=== PATIENT | male | born 1975 ===

== ENCOUNTER 2017-02-07 12:03 | Emergency (ER) | payer MEDICAID ==
[2017-02-07 12:17] VITALS: PULSE 96
[2017-02-07 12:19] VITALS: BMI 29.5
[2017-02-07] MEDS ORDERED: Aspirin 325 mg EC Tablets PO ONE (13:13)
--- NOTE | 2017-02-07 13:15 | RAD ---
HISTORY: chest pain COMPARISON: Chest x-ray performed 10/31/15 TECHNIQUE: Chest, one view. FINDINGS: LUNGS: No focal consolidation. Please note that chest x-ray has limited sensitivity for the detection of pulmonary masses. PLEURA: No significant pleural effusion identified. No definite pneumothorax . CARDIOVASCULAR: Heart size appears within normal limits. OSSEOUS STRUCTURES: Degenerative changes of the spine. VISUALIZED UPPER ABDOMEN: Unremarkable. OTHER FINDINGS: None. IMPRESSION: No focal consolidation, significant pleural effusion, or definite pneumothorax identified.
[2017-02-07 13:31] LABS: BASO % 0.4 % (0.0-2.0); EOS # 0.1 K/uL (0.0-0.7); EOS % 1.2 % (0.0-4.0); HEMATOCRIT 44.2 % (35.0-51.0); LYMPH # 1.5 K/uL (1.0-4.3); LYMPH % 15.9 % (20.0-40.0); MEAN CELL VOLUME 90.5 fL (80.0-94.0); MEAN CORPUSCULAR HEMOGLOBIN 30.4 pg (27.0-31.0); MEAN CORPUSCULAR HGB CONC 33.5 g/dL (33.0-37.0); MEAN PLATELET VOLUME 8.9 fL (7.2-11.7); MONO # 0.7 K/uL (0.0-0.8); WHITE BLOOD COUNT 9.7 K/uL (4.8-10.8)
[2017-02-07 13:38] LABS: CHLORIDE 99 mmol/L (98-107); POTASSIUM 3.6 mmol/L (3.6-5.2); SODIUM 139 mmol/L (132-148)
[2017-02-07 13:40] LABS: BILIRUBIN,TOTAL 0.9 mg/dL (0.2-1.3); CARBON DIOXIDE 28 mmol/L (22-30); GFR AFRICAN-AMERICAN > 60
[2017-02-07 13:41] LABS: ALB/GLOB RATIO 1.2 (1.0-2.1); ALKALINE PHOSPHATASE 70 U/L (38-126); ALT/SGPT 23 U/L (21-72); AST/SGOT 23 U/L (17-59); BLOOD UREA NITROGEN 19 mg/dL (9-20); CALCIUM 8.7 mg/dl (8.6-10.4); GLUCOSE,RANDOM 180 mg/dL (75-110); TOTAL PROTEIN 6.9 g/dL (6.3-8.3)
[2017-02-07 15:05] VITALS: BP 170/90; RESP 18; TEMP 98.2; O2SAT 98
--- NOTE | 2017-02-07 15:15 | C.PDOC ---
History Of Present Illness 41-year-old male, PMHx includes Diabetes, Hypertension and PR (s/p stent placement), presents to the emergency department with complaints of chest pain. Patient states he had an episode of right sided chest pain this morning, that was non-radiating and lasted ten minutes. Patient denies an pain at this time. No fevers, nausea/vomiting, cough, dizziness, chills, shortness of breath or any other associated symptoms. No other complaints at this time. Chief Complaint (Nursing): Chest Pain History Per: Patient History/Exam Limitations: no limitations Onset/Duration Of Symptoms: Hrs Current Symptoms Are (Timing): Better Quality: Sharp Past Medical History Reviewed: Historical Data, Nursing Documentation, Vital Signs Vital Signs: Last Vital Signs Temp 98.2 F 02/07/17 15:04 Pulse 96 H 02/07/17 15:04 Resp 18 02/07/17 15:04 BP 170/90 H 02/07/17 15:04 Pulse Ox 98 02/07/17 15:17 - Medical History PMH: Depression, Diabetes, HTN, TIA (10/2014, no residual symptoms) Denies: Hepatitis, HIV, Chronic Kidney Disease, Seizures, Sexually Transmitted Disease Surgical History: Coronary Stent (2 yrs ago [facility]) - [facility] Procedures CORONAR ARTERIOGR-2 CATH (11/02/14) CORONARY ARTERIOGRAM NEC (11/05/14) DETOXIFICATION SERVICES FOR SUBSTANCE ABUSE TREATMENT (10/17/16) INDIVIDUAL PSYCHOTHERAPY, COGNITIVE-BEHAVIORAL (10/17/16) INDIVIDUAL PSYCHOTHERAPY, SUPPORTIVE (10/17/16) INFLUENZA VACCINATION (11/02/14) INJECT/INFUSE PLATELET INHIBITOR (11/05/14) INSERTION OF ONE VASCULAR STENT (11/05/14) INSRT OF DRUG-ELUTING CORON ARTERY STENTS(S) (11/05/14) LEFT HEART CARDIAC CATH (11/02/14) LT HEART ANGIOCARDIOGRAM (11/02/14) PERCUTANEOUS TRANSLUMINAL CORONARY ANGIOPLASTY [PTCA] (11/05/14) PHARMACOTHERAPY FOR SUBSTANCE ABUSE TREATMENT, ANTABUSE (10/17/16) PROCEDURE ON SINGLE VESSEL (11/05/14) VACCINATION NEC (11/02/14) Family History: States: Unknown Family Hx - Social History Hx Tobacco Use: No Hx Alcohol Use: Yes Hx Substance Use: No - Immunization History Hx Tetanus Toxoid Vaccination: No Hx Influenza Vaccination: No Hx Pneumococcal Vaccination: No Review Of Systems Except As Marked, All Systems Reviewed And Found Negative. Constitutional: Negative for: Fever, Chills Cardiovascular: Positive for: Chest Pain. Negative for: Palpitations Respiratory: Negative for: Shortness of Breath Gastrointestinal: Negative for: Nausea, Vomiting Musculoskeletal: Negative for: Back Pain Skin: Negative for: Rash Neurological: Negative for: Weakness, Numbness Physical Exam - Physical Exam Appears: Non-toxic, No Acute Distress Skin: Warm, Dry, No Rash Head: Atraumatic, Normacephalic Eye(s): bilateral: Normal Inspection, PERRL Nose: Normal Oral Mucosa: Moist Lips: Normal Appearing Neck: Normal ROM Chest: Symmetrical Cardiovascular: Rhythm Regular Respiratory: Normal Breath Sounds, No Accessory Muscle Use Extremity: Normal ROM Neurological/Psych: Oriented x3, Normal Speech ED Course And Treatment - Laboratory Results Result Diagrams: 02/07/17 13:24 02/07/17 13:24 O2 Sat by Pulse Oximetry: 98 Medical Decision Making Medical Decision Making: Case discussed w/ Dr Suazo, who states to discharge patient for outpatient f/ u in office. Disposition - Disposition Referrals: Mera Suazo MD [Staff Provider] - Disposition: HOME/ ROUTINE Disposition Time: 14:25 Condition: GOOD Additional Instructions: Thank you for letting us take care of you today. Your provider was Dr. Watson. You were treated for atypical chest pain. The emergency medical care you received today was directed at your acute symptoms. If you were prescribed any medication, please fill it and take as directed. It may take several days for your symptoms to resolve. Return to the Emergency Department if your symptoms worsen, do not improve, or if you have any other problems. Please contact your doctor or call one of the physicians/clinics you have been referred to that are listed on the Patient Visit Information form that is included in your discharge packet. Bring any paperwork you were given at discharge with you along with any medications you are taking to your follow up visit. Our treatment cannot replace ongoing medical care by a primary care provider (PCP) outside of the emergency department. Thank you for allowing the [facility] team to be part of your care today. Follow up with Dr. Suazo in the next day or two for re-evaluation. Instructions: Angina (ED) - Clinical Impression Clinical Impression: Non-cardiac chest pain - Scribe Statement The provider has reviewed the documentation as recorded by the Michelle Koo All medical record entries made by the Michelle were at my direction and personally dictated by me. I have reviewed the chart and agree that the record accurately reflects my personal performance of the history, physical exam, medical decision making, and the department course for this patient. I have also personally directed, reviewed, and agree with the discharge instructions and disposition.
--- NOTE | 2017-02-08 12:00 | CARD ---
APPROVED REPORT EKG Measurement Heart [id number] [place] [id number] <Conclusion> Normal sinus rhythm Possible Left atrial enlargement Left axis deviation Left ventricular hypertrophy with repolarization abnormality Abnormal ECG
== END 2017-02-07 15:06 | disposition home or self-care (01) ==
LOC: C.ER 12:03
DX: R07.89 Other chest pain (principal)

== ENCOUNTER 2017-03-20 06:51 | Emergency (ER) | payer MEDICAID ==
[2017-03-20 06:52] VITALS: BMI 29.5
--- NOTE | 2017-03-20 08:15 | C.PDOC ---
History Of Present Illness 41 y/o male presents to the ED with complaints of pain to right rib area. [facility]. PMHx HTN, diabetes, cardiac stent; states recordist chief advised him not to sleep on floor. Denies chest pain, palpitations , SOB, cough, abdominal pain or any other complaints. Time Seen by Provider: 03/20/17 07:23 Chief Complaint (Nursing): Rib Injury History Per: Patient History/Exam Limitations: no limitations Onset/Duration Of Symptoms: Days Current Symptoms Are (Timing): Still Present Severity: Moderate Recent travel outside of the [facility]: No Past Medical History Reviewed: Historical Data, Nursing Documentation, Vital Signs Vital Signs: Last Vital Signs Temp 97.4 F L 03/20/17 08:42 Pulse 74 03/20/17 08:42 Resp 17 03/20/17 08:42 BP 184/109 H 03/20/17 08:42 Pulse Ox 100 03/20/17 08:51 - Medical History PMH: Depression, Diabetes, HTN, TIA (10/2014, no residual symptoms) Surgical History: Coronary Stent (2 yrs ago [facility]) - [facility] Procedures CORONAR ARTERIOGR-2 CATH (11/02/14) CORONARY ARTERIOGRAM NEC (11/05/14) DETOXIFICATION SERVICES FOR SUBSTANCE ABUSE TREATMENT (10/17/16) INDIVIDUAL PSYCHOTHERAPY, COGNITIVE-BEHAVIORAL (10/17/16) INDIVIDUAL PSYCHOTHERAPY, SUPPORTIVE (10/17/16) INFLUENZA VACCINATION (11/02/14) INJECT/INFUSE PLATELET INHIBITOR (11/05/14) INSERTION OF ONE VASCULAR STENT (11/05/14) INSRT OF DRUG-ELUTING CORON ARTERY STENTS(S) (11/05/14) LEFT HEART CARDIAC CATH (11/02/14) LT HEART ANGIOCARDIOGRAM (11/02/14) PERCUTANEOUS TRANSLUMINAL CORONARY ANGIOPLASTY [PTCA] (11/05/14) PHARMACOTHERAPY FOR SUBSTANCE ABUSE TREATMENT, ANTABUSE (10/17/16) PROCEDURE ON SINGLE VESSEL (11/05/14) VACCINATION NEC (11/02/14) Family History: States: Unknown Family Hx - Social History Hx Tobacco Use: No Hx Alcohol Use: Yes Hx Substance Use: No - Immunization History Hx Tetanus Toxoid Vaccination: No Hx Influenza Vaccination: No Hx Pneumococcal Vaccination: No Review Of Systems Except As Marked, All Systems Reviewed And Found Negative. Constitutional: Negative for: Fever, Chills Cardiovascular: Negative for: Chest Pain, Palpitations Respiratory: Negative for: Cough, Shortness of Breath Gastrointestinal: Negative for: Abdominal Pain Musculoskeletal: Positive for: Other (pain to right rib area) Physical Exam - Physical Exam Appears: Non-toxic, No Acute Distress, Unkempt Skin: Warm, Dry, No Rash Head: Atraumatic, Normacephalic Neck: Normal, Normal ROM, Supple Chest: Symmetrical, Tenderness (right anterior rib area) Cardiovascular: Rhythm Regular, No Murmur Respiratory: Normal Breath Sounds, No Rales, No Rhonchi, No Wheezing Gastrointestinal/Abdominal: Normal Exam, Soft, No Tenderness Extremity: Bilateral: Atraumatic Neurological/Psych: Oriented x3, Normal Speech, Normal Motor, Normal Sensation ED Course And Treatment ECG: Interpreted By Me ECG Rhythm: Sinus Rhythm, Nonspecific Changes ECG Interpretation: No Acute Changes Rate From EC O2 Sat by Pulse Oximetry: 100 (room air) Pulse Ox Interpretation: Normal - Radiology CXR: Interpreted by Me CXR Interpretation: Yes: No Acute Disease Progress Note: Plan: CXR, EKG, motrin. Patient non-complient with B/P meds. denies CP, SOB or dizziness. Treated with norvasc 10 mg PO Reassessment Condition: Improved Disposition Counseled Patient/Family Regarding: Studies Performed, Diagnosis, Need For Followup - Disposition Referrals: [facility] [Outside] [facility] [Outside] Disposition: HOME/ ROUTINE Disposition Time: 08:50 Condition: STABLE Additional Instructions: Take B/P meds as ordered Follow up with clinic Return to ED if any increase symptoms Instructions: Hypertension (ED), Rib Contusion (ED) - POA Present On Arrival: None - Clinical Impression Clinical Impression: Rib pain, Hypertension - PA / DIRECTOR OF [employer]ET[employer] / Resident Statement MD/DO has reviewed & agrees with the documentation as recorded. - Scribe Statement The provider has reviewed the documentation as recorded by the Michelle Skinner All medical record entries made by the Earleibnghia were at my direction and personally dictated by me. I have reviewed the chart and agree that the record accurately reflects my personal performance of the history, physical exam, medical decision making, and the department course for this patient. I have also personally directed, reviewed, and agree with the discharge instructions and disposition.
[2017-03-20 08:42] VITALS: BP 184/109; PULSE 74; RESP 17; TEMP 97.4
[2017-03-20 08:51] VITALS: O2SAT 100
--- NOTE | 2017-03-20 09:39 | RAD ---
HISTORY: SOB COMPARISON: 02/07/2017 TECHNIQUE: Chest PA and lateral FINDINGS: LUNGS: Mild venous congestion. PLEURA: No significant pleural effusion identified. No pneumothorax apparent. CARDIOVASCULAR: Normal. OSSEOUS STRUCTURES: No significant abnormalities. VISUALIZED UPPER ABDOMEN: Normal. OTHER FINDINGS: None. IMPRESSION: Mild venous congestion.
--- NOTE | 2017-03-21 00:58 | CARD ---
APPROVED REPORT EKG Measurement Heart [id number] <Conclusion> Normal sinus rhythm Possible Left atrial enlargement Left axis deviation Septal infarct, age undetermined T wave abnormality, consider lateral ischemia Abnormal ECG
== END 2017-03-20 09:22 | disposition home or self-care (01) ==
LOC: C.ER 06:51
DX: I10 Essential (primary) hypertension (principal); R07.81 Pleurodynia; Z91.14 Patient's other noncompliance with medication regimen

== ENCOUNTER 2017-06-18 14:42 | Emergency (ER) | payer MEDICAID ==
[2017-06-18 14:43] VITALS: BMI 29.0
[2017-06-18 16:13] LABS: BASO # 0.1 K/uL (0.0-0.2); BASO % 0.9 % (0.0-2.0); EOS # 0.5 K/uL (0.0-0.7); EOS % 5.2 % (0.0-4.0); LYMPH # 2.5 K/uL (1.0-4.3); LYMPH % 24.5 % (20.0-40.0); MEAN CELL VOLUME 89.5 fL (80.0-94.0); MEAN CORPUSCULAR HEMOGLOBIN 29.5 pg (27.0-31.0); MEAN PLATELET VOLUME 9.4 fL (7.2-11.7); MONO # 0.8 K/uL (0.0-0.8); NRBC % 0.1 % (0.0-2.0); RED CELL DISTRIBUTION WIDTH 12.8 % (11.5-14.5); WHITE BLOOD COUNT 10.1 K/uL (4.8-10.8)
[2017-06-18 16:29] LABS: ALB/GLOB RATIO 1.2 (1.0-2.1); ALKALINE PHOSPHATASE 63 U/L (38-126); ALT/SGPT 37 U/L (21-72); AST/SGOT 23 U/L (17-59); BILIRUBIN,TOTAL 0.6 mg/dL (0.2-1.3); BLOOD UREA NITROGEN 16 mg/dL (9-20); CALCIUM 9.1 mg/dl (8.6-10.4); CARBON DIOXIDE 29 mmol/L (22-30); CHLORIDE 98 mmol/L (98-107); GFR AFRICAN-AMERICAN > 60; GLUCOSE,RANDOM 95 mg/dL (75-110); POTASSIUM 4.5 mmol/L (3.6-5.2); SODIUM 137 mmol/L (132-148); TOTAL PROTEIN 6.4 g/dL (6.3-8.3)
--- NOTE | 2017-06-18 16:54 | CT ---
PROCEDURE: CT HEAD WITHOUT CONTRAST. HISTORY: r/o ICH COMPARISON: Noncontrast head CT performed 10/17/16 TECHNIQUE: Axial computed tomography images were obtained through the head/brain without intravenous contrast. Radiation dose: Total exam DLP = 983.17 mGy-cm. This CT exam was performed using one or more of the following dose reduction techniques: Automated exposure control, adjustment of the mA and/or kV according to patient size, and/or use of iterative reconstruction technique. FINDINGS: HEMORRHAGE: No intracranial hemorrhage. BRAIN: No mass effect or edema. Multiple bilateral basal ganglia lacunar infarcts. Extensive scattered periventricular and subcortical white matter hypodensities, which are nonspecific, but often seen with chronic microvascular ischemic disease. Please note that MRI with diffusion imaging is more sensitive in the detection of acute ischemic event. VENTRICLES: No hydrocephalus. CALVARIUM: Unremarkable. PARANASAL SINUSES: Unremarkable as visualized. No significant inflammatory changes. MASTOID AIR CELLS: Unremarkable as visualized. No inflammatory changes. OTHER FINDINGS: None. IMPRESSION: Multiple bilateral basal ganglia lacunar infarcts. Extensive scattered nonspecific white matter changes.
[2017-06-18 17:40] VITALS: BP 150/100; PULSE 65; RESP 18; TEMP 97.7; O2SAT 98
--- NOTE | 2017-06-18 18:07 | C.PDOC ---
History Of Present Illness 41 y/o male presents to ED with complaints of "feeling weak in his hands for a short period of time". Patient is unable to report when symptoms occurred and how long symptoms lasted. Patient denies headache, vision changes, chest pain, sob, abdominal pain or any other physical complaints at this time. Time Seen by Provider: 06/18/17 15:26 Chief Complaint (Nursing): Weakness/Neurological Deficit History Per: Patient History/Exam Limitations: no limitations Onset/Duration Of Symptoms: Days Current Symptoms Are (Timing): Still Present Past Medical History Reviewed: Historical Data, Nursing Documentation, Vital Signs Vital Signs: Last Vital Signs Temp 97.7 F 06/18/17 17:39 Pulse 65 06/18/17 17:39 Resp 18 06/18/17 17:39 BP 150/100 H 06/18/17 17:39 Pulse Ox 98 06/18/17 18:10 - Medical History PMH: Depression, Diabetes, HTN, TIA (10/2014, no residual symptoms) Surgical History: Coronary Stent (2 yrs ago [facility]) - [facility] Procedures CORONAR ARTERIOGR-2 CATH (11/02/14) CORONARY ARTERIOGRAM NEC (11/05/14) DETOXIFICATION SERVICES FOR SUBSTANCE ABUSE TREATMENT (10/17/16) INDIVIDUAL PSYCHOTHERAPY, COGNITIVE-BEHAVIORAL (10/17/16) INDIVIDUAL PSYCHOTHERAPY, SUPPORTIVE (10/17/16) INFLUENZA VACCINATION (11/02/14) INJECT/INFUSE PLATELET INHIBITOR (11/05/14) INSERTION OF ONE VASCULAR STENT (11/05/14) INSRT OF DRUG-ELUTING CORON ARTERY STENTS(S) (11/05/14) LEFT HEART CARDIAC CATH (11/02/14) LT HEART ANGIOCARDIOGRAM (11/02/14) PERCUTANEOUS TRANSLUMINAL CORONARY ANGIOPLASTY [PTCA] (11/05/14) PHARMACOTHERAPY FOR SUBSTANCE ABUSE TREATMENT, ANTABUSE (10/17/16) PROCEDURE ON SINGLE VESSEL (11/05/14) VACCINATION NEC (11/02/14) Family History: States: No Known Family Hx - Social History Hx Tobacco Use: No Hx Alcohol Use: No Hx Substance Use: No - Immunization History Hx Tetanus Toxoid Vaccination: No Hx Influenza Vaccination: No Hx Pneumococcal Vaccination: No Review Of Systems Except As Marked, All Systems Reviewed And Found Negative. Constitutional: Negative for: Fever, Chills Eyes: Negative for: Vision Change Cardiovascular: Negative for: Chest Pain Respiratory: Negative for: Cough, Shortness of Breath Gastrointestinal: Negative for: Nausea, Vomiting, Abdominal Pain Skin: Negative for: Rash Neurological: Positive for: Weakness Physical Exam - Physical Exam Appears: Non-toxic, No Acute Distress Skin: Normal Color, Warm, Dry, No Rash Head: Atraumatic, Normacephalic Eye(s): bilateral: Normal Inspection Oral Mucosa: Moist Neck: Normal ROM, Supple Chest: Symmetrical Cardiovascular: Rhythm Regular, No Murmur Respiratory: Normal Breath Sounds, No Rales, No Rhonchi, No Wheezing Gastrointestinal/Abdominal: Soft, No Tenderness, No Guarding, No Rebound Extremity: Normal ROM, Capillary Refill (<2 seconds) Pulses: Left Radial: Normal, Right Radial: Normal Neurological/Psych: Oriented x3, Normal Speech, Normal Motor, Normal Sensation ED Course And Treatment - Laboratory Results Result Diagrams: 06/18/17 16:11 06/18/17 16:11 ECG: Interpreted By Me, Viewed By Me ECG Rhythm: Sinus Rhythm Interpretation Of ECG: Left axis deviation, LVH Rate From EC (bpm) O2 Sat by Pulse Oximetry: 98 (RA) Pulse Ox Interpretation: Normal Disposition - Disposition Referrals: [facility], [Non-Staff] - Disposition: HOME/ ROUTINE Disposition Time: 17:30 Condition: GOOD Additional Instructions: Thank you for letting us take care of you today. Your provider was Dr. Watson. You were treated for hypertension. The emergency medical care you received today was directed at your acute symptoms. If you were prescribed any medication, please fill it and take as directed. It may take several days for your symptoms to resolve. Return to the Emergency Department if your symptoms worsen, do not improve, or if you have any other problems. Please contact your doctor or call one of the physicians/clinics you have been referred to that are listed on the Patient Visit Information form that is included in your discharge packet. Bring any paperwork you were given at discharge with you along with any medications you are taking to your follow up visit. Our treatment cannot replace ongoing medical care by a primary care provider (PCP) outside of the emergency department. Thank you for allowing the [facility] team to be part of your care today. Follow up with your primary doctor in 2-3 days for re-evaluation and further management. 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 - Scribe Statement The provider has reviewed the documentation as recorded by the Michelle Lima All medical record entries made by the Earleibnghia were at my direction and personally dictated by me. I have reviewed the chart and agree that the record accurately reflects my personal performance of the history, physical exam, medical decision making, and the department course for this patient. I have also personally directed, reviewed, and agree with the discharge instructions and disposition.
--- NOTE | 2017-06-19 20:26 | CARD ---
APPROVED REPORT EKG Measurement Heart [id number] <Conclusion> Normal sinus rhythm Possible Left atrial enlargement Left axis deviation Left ventricular hypertrophy Cannot rule out Septal infarct, age undetermined T wave abnormality, consider lateral ischemia Abnormal ECG
== END 2017-06-18 17:39 | disposition home or self-care (01) ==
LOC: C.ER 14:42
DX: I10 Essential (primary) hypertension (principal)

== ENCOUNTER 2017-07-06 19:15 | Emergency (ER) | payer OTHER, MEDICAID ==
[2017-07-06 19:15] VITALS: BMI 29.0
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
[2017-07-06 22:18] VITALS: BP 142/82; PULSE 69; RESP 18; TEMP 97.9
[2017-07-06 22:33] VITALS: O2SAT 99
== END 2017-07-06 22:35 | disposition home or self-care (01) ==
LOC: C.ER 19:15
DX: Z04.1 Encounter for examination and observation following transport accident (principal); V13.4XXA Pedal cycle driver injured in collision with car, pick-up truck or van in traffic accident, initial encounter; Y93.55 Activity, bike riding; Y92.410 Unspecified street and highway as the place of occurrence of the external cause

== ENCOUNTER 2017-08-09 06:51 | Emergency (ER) | payer MEDICAID, OTHER ==
[2017-08-09 06:51] VITALS: BMI 29.0
[2017-08-09] MEDS ORDERED: Labetalol 25mg/5ml Syringe IVP STA (07:14)
[2017-08-09] MEDS ORDERED: Labetalol 25mg/5ml Syringe ONE (07:26)
[2017-08-09 07:30] LABS: BASO # 0.1 K/uL (0.0-0.2); BASO % 0.9 % (0.0-2.0); EOS # 0.6 K/uL (0.0-0.7); EOS % 5.7 % (0.0-4.0); HEMATOCRIT 45.9 % (35.0-51.0); LYMPH # 2.5 K/uL (1.0-4.3); LYMPH % 24.5 % (20.0-40.0); MEAN CELL VOLUME 88.6 fL (80.0-94.0); MEAN CORPUSCULAR HEMOGLOBIN 30.4 pg (27.0-31.0); MEAN CORPUSCULAR HGB CONC 34.3 g/dL (33.0-37.0); MEAN PLATELET VOLUME 8.8 fL (7.2-11.7); MONO # 0.8 K/uL (0.0-0.8); MONO % 8.3 % (0.0-10.0); RED CELL DISTRIBUTION WIDTH 13.1 % (11.5-14.5)
[2017-08-09 07:38] VITALS: RESP 18
[2017-08-09 07:41] LABS: CHLORIDE 96 mmol/L (98-107); SODIUM 137 mmol/L (132-148)
[2017-08-09 07:42] LABS: POTASSIUM 3.7 mmol/L (3.6-5.2)
[2017-08-09 07:44] LABS: ALB/GLOB RATIO 1.1 (1.0-2.1); ALKALINE PHOSPHATASE 83 U/L (38-126); ALT/SGPT 36 U/L (21-72); AST/SGOT 29 U/L (17-59); BILIRUBIN,TOTAL 1.2 mg/dL (0.2-1.3); BLOOD UREA NITROGEN 14 mg/dL (9-20); CARBON DIOXIDE 29 mmol/L (22-30); GFR AFRICAN-AMERICAN > 60; GLUCOSE,RANDOM 128 mg/dL (75-110); TOTAL PROTEIN 8.1 g/dL (6.3-8.3)
[2017-08-09 07:45] LABS: CALCIUM 9.1 mg/dl (8.6-10.4)
--- NOTE | 2017-08-09 07:57 | RAD ---
PROCEDURE: CHEST RADIOGRAPH, 1 VIEW HISTORY: hypertension COMPARISON: None available. FINDINGS: LUNGS: Mild venous congestion. PLEURA: No pneumothorax or pleural fluid seen. CARDIOVASCULAR: Normal. OSSEOUS STRUCTURES: No significant abnormalities. VISUALIZED UPPER ABDOMEN: Normal. OTHER FINDINGS: None. IMPRESSION: Mild venous congestion.
--- NOTE | 2017-08-09 08:25 | C.PDOC ---
History Of Present Illness Patient is a 40 year old male presents to ED for evaluation of headache. Patient admits to not taking his blood pressure medication in the last 2 days. Pt is not able to recall the name of his medications. Otherwise, denies chest pain, shortness of breath, visual changes, neck pain, nausea, vomiting, or fever. Note, pt has had multiple ER visits in the past for similar complaints. Chief Complaint (Nursing): Headache History Per: Patient History/Exam Limitations: no limitations Current Symptoms Are (Timing): Still Present Quality: Aching Preceeding Symptoms: denies: Visual Disturbances, Known Migraine Symptoms Associated Symptoms: denies: Photophobia, Blurred Vision, Nausea, Vomiting, Extremity Weakness Recent travel outside of the [place]: No Additional History Per: Patient Past Medical History Reviewed: Historical Data, Nursing Documentation, Vital Signs Vital Signs: Last Vital Signs Temp 98.3 F 08/09/17 09:07 Pulse 65 08/09/17 09:07 Resp 18 08/09/17 09:07 BP 158/95 H 08/09/17 09:07 Pulse Ox 99 08/09/17 09:07 - Medical History PMH: Depression, Diabetes, HTN, TIA (10/2014, no residual symptoms) Denies: HIV, Chronic Kidney Disease Surgical History: Coronary Stent (2 yrs ago [facility]) - [facility] Procedures CORONAR ARTERIOGR-2 CATH (11/02/14) CORONARY ARTERIOGRAM NEC (11/05/14) DETOXIFICATION SERVICES FOR SUBSTANCE ABUSE TREATMENT (10/17/16) INDIVIDUAL PSYCHOTHERAPY, COGNITIVE-BEHAVIORAL (10/17/16) INDIVIDUAL PSYCHOTHERAPY, SUPPORTIVE (10/17/16) INFLUENZA VACCINATION (11/02/14) INJECT/INFUSE PLATELET INHIBITOR (11/05/14) INSERTION OF ONE VASCULAR STENT (11/05/14) INSRT OF DRUG-ELUTING CORON ARTERY STENTS(S) (11/05/14) LEFT HEART CARDIAC CATH (11/02/14) LT HEART ANGIOCARDIOGRAM (11/02/14) PERCUTANEOUS TRANSLUMINAL CORONARY ANGIOPLASTY [PTCA] (11/05/14) PHARMACOTHERAPY FOR SUBSTANCE ABUSE TREATMENT, ANTABUSE (10/17/16) PROCEDURE ON SINGLE VESSEL (11/05/14) VACCINATION NEC (11/02/14) Family History: States: Unknown Family Hx - Social History Hx Tobacco Use: No Hx Alcohol Use: No Hx Substance Use: No - Immunization History Hx Tetanus Toxoid Vaccination: No Hx Influenza Vaccination: No Hx Pneumococcal Vaccination: No Review Of Systems Except As Marked, All Systems Reviewed And Found Negative. Constitutional: Negative for: Fever, Chills Cardiovascular: Negative for: Chest Pain, Palpitations Respiratory: Negative for: Cough, Shortness of Breath Gastrointestinal: Negative for: Nausea, Vomiting Musculoskeletal: Negative for: Neck Pain, Back Pain Skin: Negative for: Rash, Bruising Neurological: Positive for: Headache. Negative for: Weakness, Numbness, Dizziness Physical Exam - Physical Exam Appears: Non-toxic, No Acute Distress Skin: Normal Color, Warm, Dry Head: Atraumatic, Normacephalic Eye(s): bilateral: Normal Inspection, PERRL, EOMI Oral Mucosa: Moist Neck: Decreased ROM, Supple Chest: Deformity Cardiovascular: Rhythm Regular, No Murmur Respiratory: Normal Breath Sounds, No Rales, No Rhonchi, No Wheezing Gastrointestinal/Abdominal: Soft, No Tenderness Extremity: Normal ROM Neurological/Psych: Oriented x3, Normal Speech, Normal Cognition ED Course And Treatment - Laboratory Results Result Diagrams: 08/09/17 07:22 08/09/17 07:22 ECG: Interpreted By Me, Viewed By Me ECG Rhythm: Sinus Rhythm ECG Interpretation: No Acute Changes Interpretation Of ECG: Left axis deviation. Rate From EC (bpm) O2 Sat by Pulse Oximetry: 98 (RA) Pulse Ox Interpretation: Normal Medical Decision Making Medical Decision Making: Blood work, head CT, EKG, CXR ordered and reviewed. Patient was given Hydrodiuril, Norvasc, Trandate, and Zestril. Disposition - Disposition Referrals: Lazaro Rodriguez MD [Non-Staff] - Disposition: HOME/ ROUTINE Disposition Time: 08:50 Condition: IMPROVED Additional Instructions: Thank you for letting us take care of you today. Your provider was Dr. Watson. You were treated for hypertension. The emergency medical care you received today was directed at your acute symptoms. If you were prescribed any medication, please fill it and take as directed. It may take several days for your symptoms to resolve. Return to the Emergency Department if your symptoms worsen, do not improve, or if you have any other problems. Please contact your doctor or call one of the physicians/clinics you have been referred to that are listed on the Patient Visit Information form that is included in your discharge packet. Bring any paperwork you were given at discharge with you along with any medications you are taking to your follow up visit. Our treatment cannot replace ongoing medical care by a primary care provider (PCP) outside of the emergency department. Thank you for allowing the [facility] team to be part of your care today. YOU RECEIVED ALL OF YOUR MORNING BLOOD PRESSURE MEDICATION HERE IN THE EMERGENCY ROOM. FOLLOW UP WITH DR. REID IN 1-2 DAYS FOR RE-EVALUATION AND FURTHER MANAGEMENT. TAKE YOUR MEDICATION PRESCRIBED ALL THE TIME. Instructions: Hypertension (ED) Forms: [employer] (Citizen Of [place]) - Clinical Impression Clinical Impression: Hypertension - Scribe Statement The provider has reviewed the documentation as recorded by the Scribe Xuan Ryan All medical record entries made by the Earleibe were at my direction and personally dictated by me. I have reviewed the chart and agree that the record accurately reflects my personal performance of the history, physical exam, medical decision making, and the department course for this patient. I have also personally directed, reviewed, and agree with the discharge instructions and disposition.
--- NOTE | 2017-08-09 08:32 | CT ---
PROCEDURE: CT HEAD WITHOUT CONTRAST. HISTORY: r/o ICH COMPARISON: Head CT without contrast 07/06/2017. TECHNIQUE: Axial computed tomography images were obtained through the head/brain without intravenous contrast. Radiation dose: Total exam DLP = 900.59 mGy-cm. This CT exam was performed using one or more of the following dose reduction techniques: Automated exposure control, adjustment of the mA and/or kV according to patient size, and/or use of iterative reconstruction technique. FINDINGS: HEMORRHAGE: No intracranial hemorrhage. BRAIN: Examination remains positive for gross lucency throughout the white matter anatomy. Although the corpus callosum appears less affected than the hemispheric peripheral white matter, demyelination should be considered for all ready excluded. Follow-up MRI as advise with the without contrast. There is no mass effect or suspicious extra-axial fluid collection identified. Chronic lacune is at the bilateral basal ganglia are again identified with left-sided pontine white matter tracts also appearing lucent. The cerebellum is unremarkable. VENTRICLES: Unremarkable. No hydrocephalus. CALVARIUM: Unremarkable. PARANASAL SINUSES: Unremarkable as visualized. No significant inflammatory changes. MASTOID AIR CELLS: Unremarkable as visualized. No inflammatory changes. OTHER FINDINGS: None. IMPRESSION: No acute cortical edema identified although chronic Brandy are again seen bilaterally of is a ganglia and extensive white matter changes are seen diffusely throughout the cerebrum predominantly and also minimally affected florian of the left. Follow-up MRI is advised for greater characterization. Though chronic microangiopathy may be the etiology of this patient's gross white-matter abnormalities, this is unusual as there is an underlying comorbidity in this 41-year-old patient. Further urological consultation is advised.
[2017-08-09 09:08] VITALS: BP 158/95; PULSE 65; TEMP 98.3
[2017-08-09 18:15] VITALS: O2SAT 98
--- NOTE | 2017-08-10 14:10 | CARD ---
APPROVED REPORT EKG Measurement Heart [id number] <Conclusion> Normal sinus rhythm Possible Left atrial enlargement Left axis deviation Left ventricular hypertrophy Cannot rule out Septal infarct, age undetermined Inferior infarct, age undetermined T wave abnormality, consider lateral ischemia Abnormal ECG
== END 2017-08-09 09:24 | disposition home or self-care (01) ==
LOC: C.ER 06:51
DX: I10 Essential (primary) hypertension (principal)